=== PATIENT | female | born 1980 | race Caucasian/White ===

== ENCOUNTER → 2018-12-16 | Day surgery (SDC) | payer OTHER ==
--- NOTE | 2018-12-17 18:08 | PATH ---
Surgical Pathology Report Patient Name: ALIX MCGHEE [facility]. Rec. #: [id number] /Age/Gender: 1980 (Age: 38) / F Account: [id number] Location: RAD[facility]OLOGY [facility] Taken: 12/16/2018 Received: 12/16/2018 Reported: 12/17/2018 Physicians: Saranya Isaac M.D. 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 DEEPER LEVELS HAVE BEEN EXAMINED. Comment: Suggest clinical/radiologic correlation. Findings discussed with Dr. Isaac. Electronically Signed Sera Alves M.D. Gross Description Received in formalin labeled "left nipple/sub," are 5 jean-yellow, cylindrical portions of fibroadipose tissue ranging from 0.4-1.2 cm in length and averaging 0.1 cm in diameter. The specimens are submitted in toto in one cassette. Time to formalin fixation: Less than one minute Total formalin fixation time: Approximately 6 hours. /12/16/2018 [facility]12/16/2018
== END | disposition home or self-care (01) ==
LOC: JRADUS-SUR 11:05
PROVIDERS: ATTEND Family Medicine
PROC: 0HBT3ZX Excision of Right Breast, Percutaneous Approach, Diagnostic (ICD-10-PCS; principal; 2018-12-16)
DX: D24.1 Benign neoplasm of right breast (principal)
CPT/HCPCS: 19083; 87899; 88305-TC; A4648